=== PATIENT | female | born 1970 | race Caucasian/White ===

== ENCOUNTER 2017-12-31 13:13 | Outpatient (CLI) | payer BC | END 2017-12-31 13:14 | disposition home or self-care (01) | LOC: BICMAMMO 13:13 | PROVIDERS: ATTEND Specialist | DX: Z12.31 Encounter for screening mammogram for malignant neoplasm of breast (principal); Z79.899 Other long term (current) drug therapy; Z98.82 Breast implant status | CPT/HCPCS: 77063; 77067 ==

== ENCOUNTER 2018-06-03 16:30 | Inpatient (IN) | payer BC ==
--- NOTE | 2018-06-03 14:22 | HP ---
HISTORY OF PRESENT ILLNESS: Ms. Ayon is a 48-year-old white female, G3, P3, with heavy menstrual b leeding. She was seen by Dr. Nicholas in my office for the heavy vaginal bleeding back on 04/26/2018. S he has been taking oral contraceptives and Provera and had continued having heavy bleeding issues. S he has had an ultrasound that showed her to have a 5 cm posterior fibroid that involve the endometria l cavity consistent with submucous leiomyoma of the uterus. She is desiring definitive surgical cond ition. PAST MEDICAL AND SURGICAL HISTORY: Previous breast augmentation. CURRENT MEDICATIONS: Flexeril 10 mg daily q.8 hours as needed for back pain. She has taken iron sul fate 325 mg b.i.d. for chronic blood loss anemia. She is also on Toprol 625 mg extended release sera y, rosuvastatin 20 mg daily for hyperlipidemia. She is on oral contraceptive Sprintec for the heavy bleeding. SOCIAL HISTORY: She is a nonsmoker. FAMILY HISTORY: Diabetes in her mother, hyperlipidemia in her father and hypertension in her father. REVIEW OF SYSTEMS: Essentially negative except for the abnormal heavy vaginal bleeding, pelvic pain and pelvic pressure as per HPI. PHYSICAL EXAMINATION: VITAL SIGNS: Blood pressure is 120/78, pulse 88, respirations 18, height 5 feet 7 inches, weight 146 with BMI 22.9. HEENT: Within normal limits. CHEST: Clear to auscultation. HEART: Regular rate and rhythm. S1, S2 heart sounds, no murmurs, rubs or gallops. BREASTS: No masses, nipple discharge or skin changes. Bilateral implants are noted. ABDOMEN: Soft, nontender, nondistended with no palpable masses. PELVIC: Vulva and vagina had no lesions. Cervix had no lesions. The uterus was enlarged with a 5 c m posterior leiomyomata mass. Adnexa were nontender with no masses. EXTREMITIES: Showed no swelling. SKIN: No rashes. Pap smear and HPV were negative. ASSESSMENT: This is a 48-year-old white female, G3, P3, with symptomatic uterine leiomyomata, submuc osal fibroid noted on pelvic ultrasound. She has tried oral contraceptives and Provera with continue d heavy bleeding. PLAN: Proceed with robotic total laparoscopic hysterectomy with preservation of ovaries as long as t hey are normal, removal of bilateral fallopian tubes. Risks and benefits of procedure were discussed in detail. She is set for surgery on 06/04/2018.
[2018-06-03 17:12] VITALS: BMI 23.3
[2018-06-04] MEDS ORDERED: CeleCOXIB 100 MG CAP ONE (06:13)
[2018-06-04] MEDS ORDERED: Gabapentin 300 MG CAP ONE (06:13)
[2018-06-04] MEDS ORDERED: Famotidine/PF 20 mg/2ml Vial ONE (06:14)
[2018-06-04] MEDS ORDERED: CEFAZOLIN/Water 2 GM/20 ML SYRINGE ONE (06:14)
[2018-06-04] MEDS ORDERED: Fentanyl 100 MCG/2 ML VIAL ONE ×3 (06:40→10:34)
[2018-06-04] MEDS ORDERED: Bupivacaine HCl 0.5%/Epinephrine 1:200,000/PF 30 ml Vial ONE (06:51)
[2018-06-04] MEDS ORDERED: Midazolam HCl 2 mg/2 ml Vial ONE (07:19)
[2018-06-04] MEDS ORDERED: Ondansetron HCl/PF 4 MG/2 ML Vial IVP PRN ×2 (09:58→10:03)
[2018-06-04] MEDS ORDERED: Promethazine HCl 25 MG/ML VIAL IM PRN ×2 (09:58→10:03)
[2018-06-04] MEDS ORDERED: Promethazine HCl 25 MG/ML VIAL SLOW IVP PRN (09:58)
[2018-06-04] MEDS ORDERED: Morphine Sulfate 2 MG/ML SYRINGE SLOW IVP PRN (09:58)
[2018-06-04] MEDS ORDERED: traMADol HCl 50 MG TAB PO PRN ×2 (10:03)
[2018-06-04] MEDS ORDERED: Morphine 4 MG/ML VIAL SLOW IVP PRN (10:03)
[2018-06-04] MEDS ORDERED: Bisacodyl 10 MG SUPP PR PRN (10:03)
[2018-06-04] MEDS ORDERED: Zolpidem Tartrate 5 MG TAB PO PRN (10:03)
[2018-06-04] MEDS ORDERED: Morphine 4 MG/ML VIAL ONE (10:31)
--- NOTE | 2018-06-04 11:44 | OP ---
DATE OF PROCEDURE: 06/04/2018 PREOPERATIVE DIAGNOSES: 1. A 48-year-old white female, G3, P3, with symptomatic 16-week uterine fibroids. 2. Menorrhagia, unresponsive to medical management. POSTOPERATIVE DIAGNOSES: 1. A 48-year-old white female, G3, P3, with symptomatic 16-week uterine fibroids. 2. Menorrhagia, unresponsive to medical management. PROCEDURE PERFORMED: 1. Robotic total laparoscopic hysterectomy with bilateral salpingectomy. 2. ExCITE procedure for removal of the uterine specimen. SURGEON: Lauren Mosley M.D. METALLURGICAL SPECIALIST: Jonathan Mehta D.O. ANESTHESIA: General endotracheal. ESTIMATED BLOOD LOSS: Less than 50 mL. COMPLICATIONS: None. COUNTS: Correct x2. ANTIBIOTICS: Two grams Ancef math interventionist to OR along with the ERAS protocol. PATHOLOGY: Uterus, cervix, and fallopian tubes. FINDINGS: 1. Normal bilateral fallopian tubes and ovaries. 2. Very large uterus with mainly a large posterior intramural fibroid noted. 3. Clear urine present in Jaimes catheter post-procedure and bladder was watertight to fluid distenti on of 300 mL post-procedure. 4. Bilateral ureteral peristalsis visualized post-procedure. DESCRIPTION OF OPERATIVE PROCEDURE: The patient previously received informed consent in regards to eloise mendoza. She was taken back to the operating room where she received a general endotracheal anestheti c agent without complications. She was placed in dorsal bonded position with the use of Jerel stirru ps and prepped and draped in usual sterile fashion. A Jaimes catheter was placed at this time, a side -arm speculum was placed in the vagina. The anterior lip of cervix grasped with a single-tooth tenac ulum. Uterus sounded to 9 cm. A size 8 cm OLEG uterine manipulator along with a 4.0 cm cervical cup was then placed in the usual fashion. Speculum and tenaculum were removed. Attention was then turn ed to the abdomen where perspective trocar sites were infiltrated with 0.5% Marcaine with epinephrine . A 12 mm infraumbilical incision was made. Veress needle was placed into the abdominal cavity. Pa tient pressure was noted to be less than 5 mm. Abdomen was insufflated to a patient pressure of 15. A 12 mm trocar was then placed through the incision site and the robotic laparoscope was entered thr ough the trocar sleeve confirming proper entry. The previously mentioned findings were noted and tesha ateral lower quadrant 8 mm trocars were placed under laparoscopic guidance along with the right upper quadrant 11 mm medication assistant port. The fascia over the umbilical trocar was then extended to approximat jesi 2.5 cm defect and aces gel cap trocar was placed at this time to allow for further tissue extract ion post hysterectomy. The trocars were placed through the gel portion of the trocar closure of the trocar device. The robot was then docked in usual fashion. The patient had been placed in Trendelen annamaria positioning. During this process the large tissue containment bag had been accordion folded and placed up in the right upper quadrant of the patient intra-abdominally. The uterus was then elevate d from the pelvis by my medication assistant and I proceeded to carry out the surgery from the surgical console. The right fallopian tube was grasped by my medication assistant and the mesosalpinx was incised with the monop olar scissor and cauterized with bipolar fenestrated cautery with excision of the right fallopian tub e and brought out through the right upper quadrant medication assistant port. Serial coagulation of uterine ova ivan ligament, hugging close to the uterus was carried out both coagulation and transection until the right round ligament was reached. It was coagulated and transected. Anterior leaf of the broad lig ament was entered. Vesicouterine peritoneum was then incised in a layering technique atraumatically taking the bladder past the cervical vaginal angle, which was delineated by the indention of the cerv ical cup from the manipulator. The uterine vessels were skeletonized and then they were coagulated i n internal cervical os region with bipolar fenestrated cautery. This was repeated on the left side o f the uterus. Again, the tube was grasped by my medication assistant, mesosalpinx was incised with monopolar ca utery and bipolar fenestrated cautery and then the tube was removed to the right upper quadrant troca r sleeve. The utero-ovarian ligament on left was coagulated and transected. Serial coagulation of b road ligament again hugging close to the specimen was carried out until the left round ligament was r eached. It was coagulated and transected. Anterior leaf of the broad ligament again was entered dis secting the vesicouterine peritoneum in a layering technique atraumatically dropping the bladder past the cervical vaginal angle. Again, the skeletization of the uterine vessels were carried out on the left side and they were coagulated in internal cervical os region. Once this had been accomplished, the posterior colpotomy was then carried out starting from the 6 to 3 and 6 to 9 o'clock position. The anterior colpotomy was then completed from 12 to 3 and 12 to 9 and then the coagulation of the ve ssels securing them at 3 and 9 o'clock were carried out with bipolar fenestrated cautery. The specim en was then disengaged from the OLEG uterine manipulator and the uterus was placed in the left upper quadrant of the patient. Monopolar scissors were exchanged for [place] needle driver guard and Stratafix sut ure was placed, brought in by my medication assistant. The vaginal cuff was coagulated any bleeding sites prior to closure of the vaginal cuff. The cuff was closed in running continuous fashion in 2 layer closur e with a Stratafix suture. Hemostasis was confirmed. Again, the pedicle sites were inspected, bilat eral uterus peristalsis was visualized. The bladder was distended to 300 mL and it was watertight. Clear urine was draining from the Jaimes catheter. The tissue containment bag was then brought into the pelvis and the EndoShears were utilized to cut t he stay sutures to keep the bag in accordion fashion. This allowed for the bag to open and then we w ere able to bring the uterine specimen into the bag. The edges of the bag were then brought up with my bipolar fenestrated and [place] needle drivers while my medication assistant kept pressure on the specimen with in the tissue containment bag. We then brought out the previous placed suture loop with the tied str ing from the specimen bag through the loop to secure the closure of the bag. My medication assistant then place d a 5 mm grasper through the gel point trocar and grasped the suture bag guider and brought this up t hrough the Gel point. The robot was then undocked. The tissue containment bag suture and bag were b rought up through the 2.5 cm fascial defect in the umbilicus. Then we exchanged the Aces. The Abdulkadir s O retractor and placed that inside the containment bag to provide for a buffer and protector of the skin and fascia while the tissue coring morcellation was carried out. The specimens grasped by the cervix was brought up through the tissue with the fascial defect. The uterus was then removed in a m orcellating fashion with inside the tissue containment bag and a C technique. Once all of the specim en had been removed, the bag was tested and was irrigated and noted to be intact. The bag was then r emoved along with the Linus O retractor. The fascial defect in the umbilicus was then closed with a 0 Vicryl suture in running continuous fashion, closing the fascial defect securely. The remainder o f the subcutaneous tissues were closed with running 4-0 Monocryl subcuticular stitches and Dermabond. The vaginal vault was inspected with a sponge stick and hemostasis was confirmed. The patient was awakened from anesthesia and transferred to recovery in stable condition.
[2018-06-04] MEDS ORDERED: Ketorolac Tromethamine 30 MG/ML VIAL IVP SCH (12:00)
[2018-06-04] MEDS ORDERED: Cyclobenzaprine 10 MG TAB PO PRN (12:18)
[2018-06-04] MEDS: Acetaminophen 1,000 MG in Premix Bag 1 BAG IVPB SCH ×3 (12:54→23:59)
[2018-06-04] MEDS ORDERED: Ketorolac Tromethamine 30 MG/ML VIAL ONE (14:38)
[2018-06-04] MEDS ORDERED: Dexamethasone 20 MG/5 ML VIAL ONE (14:38)
[2018-06-04] MEDS ORDERED: Glycopyrrolate 0.2 MG/ML 5 ML SYRINGE ONE (14:38)
[2018-06-04] MEDS ORDERED: Lidocaine 1% PF 5 ML VIAL ONE (14:38)
[2018-06-04] MEDS ORDERED: PROPOFOL 200 MG/20 ML VIAL ONE (14:38)
[2018-06-04] MEDS ORDERED: Ondansetron HCl/PF 4 MG/2 ML Vial ONE (14:38)
[2018-06-04] MEDS ORDERED: ePHEDrine/0.9% NaCl/PF SYRINGE 50 mg/10 ml ONE (14:38)
[2018-06-04] MEDS: Ketorolac Tromethamine 30 MG/ML VIAL IVP SCH ×2 (15:28→21:34)
[2018-06-04] MEDS: Lactated Ringer's 1,000 ML IV SCH (15:31)
[2018-06-04] MEDS ORDERED: clonazePAM 1 MG TAB PO SCH (21:00)
[2018-06-04] MEDS ORDERED: Rosuvastatin 20 MG TAB PO SCH (21:00)
[2018-06-04] MEDS: Ferrous Sulfate 325 MG TAB PO SCH (21:35)
[2018-06-05] MEDS: Lactated Ringer's 1,000 ML IV SCH ×3 (01:31→09:45)
[2018-06-05] MEDS: Ketorolac Tromethamine 30 MG/ML VIAL IVP SCH ×2 (03:20→08:00)
[2018-06-05 05:56] LABS: Hemoglobin 11.7 g/dL (12.0-16.0); Mean Corpuscular HGB CONC 32.3 g/dL (32.0-36.0); Mean Corpuscular Hemoglobin 29.2 pg (27.0-31.0); Mean Corpuscular Volume 90.4 fL (78.0-98.0); Mean Platelet Volume 8.3 fL (7.4-10.4); Platelet Count 239 thou/uL (130-400); RBC Distribution Width 18.6 % (11.5-14.5); White Blood Cell (WBC) Count 10.6 thou/uL (4.8-10.8)
[2018-06-05] MEDS: Acetaminophen 1,000 MG in Premix Bag 1 BAG IVPB SCH (06:30)
[2018-06-05 07:52] VITALS: BP 161/79; TEMP 97.7
--- NOTE | 2018-06-05 08:02 | PDOC.EVN ---
Event Note - Event Note Event Note: Tolerating diet. Good pain cotrol. Voiding. AFVSS. HCT 36 %. UOP 3500ml plus abdomen: trochar sites clean and dry. No vaginal bleeding A/P: post op day 1 fro Robotic TLH/Bilateral salpingectomy. Doing well. D/c home. F/u in 2 and 6 weeks. Pathology is pending.
[2018-06-05] MEDS: Ferrous Sulfate 325 MG TAB PO SCH (08:15)
[2018-06-05] MEDS ORDERED: BIOTIN 1 MG PO SCH (09:00)
[2018-06-05] MEDS ORDERED: Magnesium Oxide 250 MG TAB PO SCH (09:00)
[2018-06-05] MEDS ORDERED: Fish Oil 1,000 MG CAP PO SCH (09:00)
[2018-06-09] MEDS ORDERED: Ibuprofen 800 MG TAB PO SCH (21:00)
== END 2018-06-05 10:24 | disposition home or self-care (01) | DRG 743 ==
LOC: SURG A 06-04 06:03 → 3SE 06-04 11:20
PROVIDERS: ADMIT Obstetrics & Gynecology; ATTEND Obstetrics & Gynecology
PROC: 0UT94ZZ Resection of Uterus, Percutaneous Endoscopic Approach (ICD-10-PCS; principal; 2018-06-04)
PROC: 0UT74ZZ Resection of Bilateral Fallopian Tubes, Percutaneous Endoscopic Approach (ICD-10-PCS; 2018-06-04)
PROC: 8E0W4CZ Robotic Assisted Procedure of Trunk Region, Percutaneous Endoscopic Approach (ICD-10-PCS; 2018-06-04)
DX: D25.0 Submucous leiomyoma of uterus (principal); D64.9 Anemia, unspecified; N92.0 Excessive and frequent menstruation with regular cycle; D25.9 Leiomyoma of uterus, unspecified; D50.0 Iron deficiency anemia secondary to blood loss (chronic)
CPT/HCPCS: 36415; 84703; 85027; 86850; 86900; 86901; 88307; 93005; 93010; 96374; A4216; J0131; J0670; J1100; J1885; J2001; J2250; J2270; J2405; J2704; J3010; S0028

== ENCOUNTER 2018-06-03 16:58 | Outpatient (CLI) | payer BC ==
[2018-06-03 16:59] LABS: Hemoglobin 14.4 g/dL (12.0-16.0); Mean Corpuscular Hemoglobin 29.5 pg (27.0-31.0); Mean Corpuscular Volume 89.2 fL (78.0-98.0); Mean Platelet Volume 7.8 fL (7.4-10.4); Platelet Count 320 thou/uL (130-400); RBC Distribution Width 19.1 % (11.5-14.5); Red Blood Cell (RBC) Count 4.89 mill/uL (4.20-5.40); White Blood Cell (WBC) Count 7.8 thou/uL (4.8-10.8)
[2018-06-03 17:06] LABS: BHCG - Serum Negative (NEGATIVE); Pregs Control Background? CLEAR/WHITE (CLR/WHITE); Pregs Control Bar Appear? YES (CONTROL BAR)
--- NOTE | 2018-06-09 14:31 | EKG ---
Test Reason : Blood Pressure : / mmHG Vent. Rate : 072 BPM Atrial Rate : 072 BPM P-R Int : 122 ms QRS Dur : 082 ms QT Int : 390 ms P-R-T Axes : 067 083 064 degrees QTc Int : 427 ms Normal sinus rhythm Normal ECG No previous ECGs available Confirmed by MITCHELL MATIAS (2) on 06/09/2018 2:31:32 PM Referred By: JACI Confirmed By:MITCHELL MATIAS
== END 2018-06-03 16:59 | disposition home or self-care (01) ==
LOC: LABBT 16:58
PROVIDERS: ATTEND Obstetrics & Gynecology
DX: Z01.818 Encounter for other preprocedural examination (principal); N92.0 Excessive and frequent menstruation with regular cycle; D64.9 Anemia, unspecified; D25.0 Submucous leiomyoma of uterus
CPT/HCPCS: 84703; 85027; 86850; 86900; 86901; 93005; 93010

== ENCOUNTER 2020-03-18 14:12 | Outpatient (CLI) | payer BC ==
--- NOTE | 2020-03-18 15:01 | MMO ---
Bilateral MAMMO Bilat Screen [facility]. CLINICAL HISTORY: Patient is 50 years old and is seen for screening. The patient has no family history of breast cancer. The patient has no personal history of cancer. The patient has a history of bilateral Implants in 2003 - benign and left Excisional Biopsy at age 30 - benign. VIEWS: The views performed were: bilateral craniocaudal; bilateral craniocaudal with tomosynthesis; bilateral mediolateral oblique; bilateral mediolateral oblique with tomosynthesis; and bilateral Implant displaced with tomosynthesis. FILMS COMPARED: The present examination has been compared to prior imaging studies performed at [facility] on 11/12/2015, 11/20/2016, 12/31/2017 and 02/28/2019. This study has been interpreted with the assistance of computer-aided detection. MAMMOGRAM FINDINGS: The breasts are heterogeneously dense, which could obscure a lesion on mammography. There are no suspicious masses, suspicious calcifications, or new areas of architectural distortion. IMPRESSION: THERE IS NO MAMMOGRAPHIC EVIDENCE OF MALIGNANCY. A ROUTINE FOLLOW-UP MAMMOGRAM IN 1 YEAR IS RECOMMENDED. THE RESULTS OF THIS EXAM WERE SENT TO THE PATIENT. ACR BI-RADS Category 1 - Negative MAMMOGRAPHY NOTE: 1. A negative mammogram report should not delay a biopsy if a dominant of clinically suspicious mass is present. 2. Approximately 10% to 15% of breast cancers are not detected by mammography. 3. Adenosis and dense breasts may obscure an underlying neoplasm. Reported by: KAMRAN QUIROZ MD Electonically Signed: [id number]
== END 2020-03-18 14:13 | disposition home or self-care (01) ==
LOC: BICMAMMO 14:12
PROVIDERS: ATTEND Specialist
DX: Z12.31 Encounter for screening mammogram for malignant neoplasm of breast (principal); Z91.89 Other specified personal risk factors, not elsewhere classified
CPT/HCPCS: 77063; 77067

== ENCOUNTER 2021-02-02 14:19 | Outpatient (CLI) | payer BC | END 2021-02-02 14:20 | disposition home or self-care (01) | LOC: BICULT 14:19 | PROVIDERS: ATTEND Nurse Practitioner Family | DX: R31.9 Hematuria, unspecified (principal) | CPT/HCPCS: 76770 ==

== ENCOUNTER 2021-09-22 14:59 | Outpatient (CLI) | payer BC | END 2021-09-22 15:00 | disposition home or self-care (01) | LOC: BICMAMMO 14:59 | PROVIDERS: ATTEND Specialist | DX: Z12.31 Encounter for screening mammogram for malignant neoplasm of breast (principal); Z98.82 Breast implant status; Z91.89 Other specified personal risk factors, not elsewhere classified | CPT/HCPCS: 77063; 77067 ==